=== PATIENT | female | born 1995 | race Caucasian/White ===

== ENCOUNTER 2017-11-05 22:16 | Emergency (ER) | payer BC ==
[2017-11-06] MEDS ORDERED: predniSONE 20 MG TAB ONE (00:17)
[2017-11-06] MEDS ORDERED: Famotidine 20 MG TAB ONE (00:17)
== END 2017-11-06 00:26 | disposition home or self-care (01) ==
LOC: ERS 22:16
DX: T78.40XA Allergy, unspecified, initial encounter (principal); E03.9 Hypothyroidism, unspecified; M19.90 Unspecified osteoarthritis, unspecified site; Z79.899 Other long term (current) drug therapy
CPT/HCPCS: 99284; J7506